=== PATIENT | male | born 1990 | race Caucasian/White ===

== ENCOUNTER 2020-03-22 09:30 | Emergency (ER) | payer SELFPAY ==
[2020-03-22] MEDS ORDERED: Lidocaine 1% PF 5 ML VIAL ONE (09:57)
== END 2020-03-22 10:35 | disposition home or self-care (01) ==
LOC: BURERS 09:30
DX: S60.551A Superficial foreign body of right hand, initial encounter (principal); F17.220 Nicotine dependence, chewing tobacco, uncomplicated; W25.XXXA Contact with sharp glass, initial encounter
CPT/HCPCS: 99283